=== PATIENT | male | born 2000 | race Caucasian/White ===

== ENCOUNTER 2021-11-30 18:16 | Emergency (ER) | payer OTHER, SELFPAY ==
--- NOTE | 2021-11-30 18:28 | ED.URI ---
HPI - URI/Sore Throat General Chief Complaint: Dizziness Stated Complaint: Dizziness/Vomiting/Headache Time Seen by Provider: 11/30/21 19:01 Source: patient and RN notes reviewed Mode of arrival: ambulatory Limitations: no limitations History of Present Illness HPI Narrative: 21-year-old male presents concern for dizziness, vomiting and occasional headache. He reports he felt a popping in his ear and then began having dizziness when he turns his head. He reports the room spinning type dizziness. Reports occasionally the dizziness makes him vomit. He denies decree strength, sensation in any extremity, thunderclap headache. Reports his symptoms been going on for about 2 weeks. MD elicited complaint: other (Dizziness) Related Data Allergies Allergy/AdvReac Type Severity Reaction Status Date / Time No Known Allergies Allergy Verified 11/30/21 18:43 Review of Systems Review of Systems: CONSTITUTIONAL: Denies malaise, chills, sweats, or fever. EYES: Denies visual changes, redness, or discharge. ENT: Denies rhinorrhea, congestion, sinus pain, otalgia and sore throat. CARDIOVASCULAR: Denies chest pain, palpitations, or edema. RESPIRATORY: Denies cough. Denies dyspnea. GASTROINTESTINAL: Denies abdominal pain, diarrhea. Reports nausea, vomiting SKIN: Denies rash or itching. MUSCULOSKELETAL: Denies myalgia. NEUROLOGIC: Reports headache. All systems reviewed & are unremarkable except as noted in HPI and below PMFSH Comments At time of signature, agree with nursing past medical, surgical, social and family history. There is no relevant family history pertinent to the presenting complaint Exam Narrative: GENERAL: Well-appearing, well-nourished, and in no acute distress. HEAD: Normocephalic EYES: PERRLA, conjunctivae clear ENT: Nares clear. Mucous membranes moist. TM pearly nj with dull light reflex bilaterally; no tragal tenderness. Oropharynx not erythematous without lesions. Tonsils not enlarged and without exudate, no drooling, no hoarseness, no trismus, uvula midline. NECK: Supple. No lymphadenopathy CHEST: No respiratory distress, speaks in full sentences. HEART: Regular rate and rhythm. No murmur heard. SKIN: Warm, dry, no rash. NEURO: Alert and oriented x3. No focal deficits, cranial nerves II through XII grossly intact PSYCH: Normal mood and affect Course Course Emergency Course: Patient is aware of diagnosis, understands and agrees to treatment plan. Anticipatory guidance given. Patient agrees to follow-up as directed and is aware of reasons to seek care at the emergency department. Portions of this record may have been created with voice recognition software Level of Care: Express Care Visit Vital Signs Vital signs: Vital Signs Temperature 99.5 F 11/30/21 18:32 Pulse Rate 64 11/30/21 18:32 Respiratory Rate 20 11/30/21 18:32 Blood Pressure 112/62 11/30/21 18:32 Pulse Oximetry 99 11/30/21 18:32 Temperature 99.5 F 11/30/21 18:32 Pulse Rate 64 11/30/21 18:32 Respiratory Rate 20 11/30/21 18:32 Blood Pressure 112/62 11/30/21 18:32 Pulse Oximetry 99 11/30/21 18:32 Reviewed. MDM - URI/Sore Throat MDM Narrative Medical decision making narrative: Patients vertigo is felt to be likely peripheral in origin. there is no diplopia, dysarthria, or dyshphagia. Patients gait is stable and there are no focal neurological deficits on exam. Risk for central causes has been reviewed. Patient felt likely reasonable for continued outpatient management and risks are felt to outweigh benefits for further imaging studies at this time Lab Data Attestation: I reviewed the patient's lab results. Critical Care Time Critical Care Time Critical Care Time: No Discharge Plan Discharge Clinical Impression: Benign paroxysmal positional vertigo Qualifiers: Laterality: unspecified laterality Qualified Code(s): H81.10 - Benign paroxysmal vertigo, unspecified ear Patient Disposition: Home, Self-Care C
[2021-11-30 18:32] VITALS: BP 112/62; PULSE 64; RESP 20; TEMP 37.5; O2SAT 99
== END 2021-11-30 19:26 | disposition home or self-care (01) ==
PROVIDERS: Emergency Provider Nurse Practitioner
DX: H81.10 Benign paroxysmal vertigo, unspecified ear (principal)
CPT/HCPCS: 99213; G0463

== ENCOUNTER 2022-10-08 13:18 | Emergency (ER) | payer OTHER, SELFPAY ==
[2022-10-08 13:25] VITALS: BP 135/80; PULSE 85; RESP 20; TEMP 36.6; O2SAT 99
--- NOTE | 2022-10-08 13:35 | ED.NECK ---
HPI - Neck Pain/Injury General Chief Complaint: Neck Pain/Injury Stated Complaint: sore throat Time Seen by Provider: 10/08/22 13:30 Source: patient Mode of arrival: ambulatory Limitations: no limitations History of Present Illness HPI Narrative: Boy is a 22-year-old male patient presenting to clinic today with complaints of possible throat swelling. He reports that he was in a wrestling match yesterday and he was kicked in the throat. States that he feels as though his throat is swollen today. He reports that he is having some pain with swallowing and feels as though it may be hard to breathe Related Data Allergies Allergy/AdvReac Type Severity Reaction Status Date / Time No Known Allergies Allergy Verified 10/08/22 13:31 Review of Systems Review of Systems: Pertinent positives per HPI. Patient denies any fever, chills, rash, headache, visual changes, dizziness, cough, shortness of breath, chest pain, palpitations, nausea, vomiting, diarrhea, constipation, abdominal pain, or any urinary issues. PMFSH Comments At the time of my signature, I reviewed and agree with the nursing past medical, surgical, social, and family history. There is no relevant family history pertinent to the patient complaint. Exam Narrative: General: Well-developed, well nourished, in no apparent distress Head: Normocephalic, atraumatic Eyes: Pupils equally round and reactive to light bilaterally, EOM intact, sclera and conjunctive clear, no discharge, lids normal Ears: TMs intact and clear, ear canals clear, no drainage, grossly hearing normal. Nose: Nares patent, no discharge, no inflammation, no sinus tenderness. Mouth: Oral pharynx without lesions or masses, good dentition, MMM. Neck: Supple, trachea midline, no enlargement of anterior or posterior cervical nodes, no thyroid masses or goiter palpable. Cardio: Regular rate and rhythm, s1 and s2 normal, no murmur appreciated. Resp: Clear to auscultation bilaterally, no rhonchi, rales, wheezing or rubs Course Course Emergency Course: Portions of this record may have been created with voice recognition software. Level of Care: Express Care Visit Vital Signs Vital signs: Vital Signs Temperature 36.6 C 10/08/22 13:25 Pulse Rate 85 10/08/22 13:25 Respiratory Rate 20 10/08/22 13:25 Blood Pressure 135/80 10/08/22 13:25 Pulse Oximetry 99 10/08/22 13:25 Oxygen Delivery Room Air 10/08/22 13:25 Temperature 36.6 C 10/08/22 13:25 Pulse Rate 85 10/08/22 13:25 Respiratory Rate 20 10/08/22 13:25 Blood Pressure 135/80 10/08/22 13:25 Pulse Oximetry 99 10/08/22 13:25 Oxygen Delivery Room Air 10/08/22 13:25 Vital signs reviewed MDM - Neck Pain/Injury MDM Narrative Medical decision making narrative: At the time of visit patient is resting comfortably on exam table. I do not see any swelling in the oropharynx however I cannot rule out swelling in the trachea. I will give a prescription for some prednisone to help with swelling and discuss other supportive measures and patient voiced understanding discharge instructions agrees to treatment plan. Differential Diagnosis Differential diagnosis: Likely strain of neck muscle and other (Soft tissue swelling) Discharge Plan Discharge Clinical Impression: Anterior neck pain Patient Disposition: Home, Self-Care Condition: Stable Instructions: Antibiotic Form, Acute Neck Pain (ED) Additional Instructions: Take prescription medications only as prescribed-prednisone Increase fluids and stay well hydrated Tylenol/motrin for pain/fever Cepacol spray, cough drops, throat lozenges, warm tea with honey/lemon, gargle salt water to soothe throat Clear liquids x 24 hours then advance as tolerated for nausea/vomiting Go to the ED if you develop a worsening in your condition- high fever not controlled by Tylenol or Motrin, dehydration, weakness, lethargy, shortness of breath, or chest pain. F
== END 2022-10-08 13:40 | disposition home or self-care (01) ==
PROVIDERS: Emergency Provider Nurse Practitioner Family; PCP Emergency Medicine
DX: M54.2 Cervicalgia (principal)
CPT/HCPCS: 99213; G0463

== ENCOUNTER 2025-08-25 16:57 | Emergency (ER) | payer OTHER, SELFPAY ==
--- OUTSIDE RECORDS SUMMARY | 2025-08-25 17:01 | XMS_ITS | Clinical Summary ---
Author Organization [facility] Address [address] [place] [address] Care Team Providers Care Forensic Engineer Name Role Phone Suzie Blankenship MD Primary Care Provider [phone] Source Comments [facility],non-owned Affiliates and Associated Physician Practices is amultiple site organization consisting of ambulatory clinics and hospital sitesin [place], [place], [place] and [place]. This disclosure is being madepursuant to the Care Everywhere program and may not contain all information available regarding this patient. Last updated 18.[facility] Social History Tobacco Use Types Packs/Day Years Used Date Smoking Tobacco: Never Assessed Sex and Gender Information Value Date Recorded Sex Assigned at Not on file Legal Sex Male 3:23 PM CDT Gender Identity Not on file Sexual Orientation Not on file Plan of Treatment Health Maintenance Due Date Last Done Comments HIV SCREENING 2013 HEPATITIS C SCREENING 05/02/2016 DTAP/TDAP/TD VACCINES (1 - Tdap) 2017 HEPATITIS B VACCINE (1 of 3 - 19+ 3-dose series) 2017 DEPRESSION SCREENING 08/29/2024 COVID-19 VACCINE (1 - 2024-2 6 season) 2025 INFLUENZA VACCINE (#1) 2025 HPV VACCINE (1 - 3-dose SCDM series) 2025 ZOSTER VACCINE (1 of 2) 2048 HIB VACCINE Aged Out No longer eligi ble based on patient's age to complete this topic MENINGOCOCCAL (Group B) VACC INE SHARED DECISION-MAKING Aged Out No longer eligibl e based on patient's age to complete this topic MENINGOCOCCAL GROUPS A/C/Y/W VACCINE Aged Out No longer eligible b ased on patient's age to complete this topic PNEUMOCOCCAL VACCINE Aged Out No long er eligible based on patient's age to complete this topic Insurance [facility] MEDICAID - OUT OF [facility] MEDICAID - [place] MEDICAID - [facility] Care Teams Forensic Engineer Relationship Specialty Start Date End Date Suzie Blankenship MD [address] [place] [phone] PCP - General 01/17/19
--- OUTSIDE RECORDS SUMMARY | 2025-08-25 17:01 | XMS_ITS | Clinical Summary ---
Author Organization [facility] Address [address] [place] [address] Phone Care Team Providers Care Marketing Development Representative Name Role Phone Provider, None Primary Care Provider Unavailabl e Allergies Active Allergy Reactions Criticality Noted Date Comments [place] Leaves Extract Hives 06/14/2017 Medications naproxen (NAPROSYN) 500 MG Tablet Take 1 Tablet by mouth 2 times daily as needed for Mild or more severe pain. 20 Tablet 03/21/2022 Active cyclobenzaprine (FLEXERIL) 10 MG Tablet Take 1 Tablet by mouth 3 times daily as needed for Muscle spasms. 30 Tablet 03/21/2022 Active ondansetron (ZOFRAN) 4 MG Tablet Take 1 Tablet by mouth every 8 hours as needed for Nausea - 1st line. 10 Tablet 08/09/2022 Active dicyclomine (BENTYL) 20 MG Tablet Take 1 Tablet by mouth every 6 hours. 30 Tablet 08/09/2022 Active Social History Tobacco Use Types Packs/Day Years Used Date Smoking Tobacco: Former Cigarettes Smokeless Tobacco: Never Alcohol Use Standard Drinks/Week Comments No 0 (1 standard drink = 0.6 oz pur e alcohol) socially Sex and Gender Information Value Date Recorded Sex Assigned at Not on file Legal Sex Male 10:31 PM CDT Gender Identity Not on file Sexual Orientation Not on file Last Filed Vital Signs Vital Sign Reading Time Taken Comments Blood Pressure 121/79 08/09/2022 11:32 AM MANAGER STORY Pulse 83 08/09/2022 11:30 AM MANAGER STORY Temperature 36.1 C (97 F) 08/09/2022 11:30 AM MANAGER STORY Respiratory Rate 18 08/09/2022 11:30 AM MANAGER STORY Oxygen Saturation 100% 08/09/2022 11:30 AM MANAGER STORY Inhaled Oxygen Concentration - - Weight 81.6 kg (180 lb) 08/09/2022 11:30 AM MANAGER STORY Height 175.3 cm (5' 9) 08/09/2022 11:30 AM MANAGER STORY Body Mass Index 26.58 08/09/2022 11:30 AM MANAGER STORY Plan of Treatment Health Maintenance Due Date Last Done Comments Hepatitis C Virus (HCV) Screening 1998 TdaP Immunization 1998 Varicella Immunization (1 of 2 - 13+ 2-dose series) 2011 Hepatitis B Immunization (1 of 3 - 19+ 3-dose series) 2017 Influenza Immunization (#1) 2025 SARS-COV-2 Immunization ( season) 2025 Respiratory Syncytial Virus (RSV) Immunization (Adult) (1 - 1-dose 75+ series) 2073 Human Papillomavirus (HPV) Immunization (No Doses Required) Completed Meningococcal Immunization (ACWY) Aged Out No longer eligible based on patient's age to complete this topic Pneumococcal Immunization Combined Aged Out No longer eligible based on patient's age to complete this topic Rotavirus Immunization Aged Out No lo nger eligible based on patient's age to complete this topic Insurance MEDICAID [employer] Care Teams Marketing Development Representative Relationship Specialty Start Date End Date Provider, None MIGUEL PCP - General 03/27/20
--- OUTSIDE RECORDS SUMMARY | 2025-08-25 17:01 | XMS_ITS | Clinical Summary ---
Author Organization [facility] Address [address] [place] [address] Care Team Providers Care Speed Reading Teacher Name Role Phone Theresa Dooley MD Primary Care Pro vider Allergies Active Allergy Reactions Criticality Noted Date Comments [place] Hives Medium 06/14/2017 Medications methylphenidate CD (METADATE CD) 40 mg CR capsule take 1 capsule by oral route every day before breakfast 0 0 6 Active Additional Information Patient not taking.Reported on 10/13/2017 Active Problems Problem Noted Date Diagnosed Date Pain in wrist 02/20/2016 Overview (12/01/2016): Wrist pain Pain of hand 02/20/2016 Overview (12/01/2016): Hand pain Asthma 02/20/2016 Overview (12/02/2016): Asthma Surgical History Surgery Date Site/Laterality Comments TONSILLECTOMY Medical History Medical History Date Comments Hx Other Medical Left wrist/hand fx. 6-14-16; Comments: JLIGIA 02/20/2016 - Family History Medical History Relation Name Comments Hypertension Father Relation Name Status Comments Father Social History Tobacco Use Types Packs/Day Years Used Date Smoking Tobacco: Every Day Smokeless Tobacco: Never Sex and Gender Information Value Date Recorded Sex Assigned at Not on file Legal Sex Male 4:08 AM SNIPPER Gender Identity Not on file Sexual Orientation Not on file Last Filed Vital Signs Vital Sign Reading Time Taken Comments Blood Pressure 136/76 10/13/2017 2:07 PM SNIPPER Pulse 96 10/13/2017 2:07 PM SNIPPER Temperature - - Respiratory Rate - - Oxygen Saturation - - Inhaled Oxygen Concentration - - Weight 91.2 kg (201 lb) 10/13/2017 2:07 PM SNIPPER Height 175.3 cm (5' 9) 10/13/2017 2:07 PM SNIPPER Body Mass Index 29.68 10/13/2017 2:07 PM SNIPPER Plan of Treatment Not on file Insurance [facility] Care Teams Speed Reading Teacher Relationship Specialty Start Date End Date Theresa Dooley MD PCP - General 04/09/16
[2025-08-25 17:02] VITALS: BP 118/76; PULSE 85; RESP 14; TEMP 36.3; O2SAT 100
--- NOTE | 2025-08-25 17:21 | ED_ITS ---
HPI - Nausea/Vomiting/Diarrhea General Chief complaint: Nausea/Vomiting/Diarrhea Stated complaint: nausea/stomach pain Time Seen by Provider: 08/25/25 17:10 Source: patient and RN notes reviewed Mode of arrival: ambulatory Limitations: no limitations History of Present Illness HPI Narrative: 25-year-old male patient Presents Express Care complaining of nausea, vomiting, diarrhea for 2-3 days. Patient reports having lower abdominal cramping. Patient denies any abdominal pain, fevers, body aches, chills. Patient last vomited approximately 2 and half hours ago. Patient has been able to keep fluids down since vomiting. Patient reports having loose stools. Patient denies any blood or mucus in stools. Patient tried some Pepto this morning without relief. Patient denies recent travel outside the country. Related Data Allergies Allergy/AdvReac Type Severity Reaction Status Date / Time strawberry Allergy Unknown Unknown Verified 08/25/25 17:06 Review of Systems Review of Systems: CONSTITUTIONAL: Denies fever, chills, body aches, or sweats. EYES: Denies visual changes, redness, or discharge. ENT: Denies rhinorrhea, congestion, sore throat, or otalgia. CARDIOVASCULAR: Denies chest pain, palpitations, or edema. RESPIRATORY: Denies cough or dyspnea. GASTROINTESTINAL: Denies abdominal pain, bloody stools, hematochezia. Positive for nausea, vomiting, or diarrhea. GENITOURINARY: Denies dysuria or hematuria. SKIN: Denies rash or itching. MUSCULOSKELETAL: Denies back pain, joint pain, or myalgia. NEUROLOGIC: Denies headache, numbness, or weakness. PSYCHIATRIC: Denies anxiety or depression. All other systems reviewed are negative, except as documented in HPI. Exam Narrative: GENERAL: This is a well-nourished, well-developed adult, in no apparent distress. They are non ill-appearing, nontoxic appearing. HEAD: normocephalic, atraumatic. EYES: Sclera clear/white. Vision is grossly intact. Conjunctiva normal bilaterally. Extraocular movements intact. EARS: External ears normal, Hearing grossly intact. NOSE: External nose normal THROAT: Mucous membranes moist NECK: Normal range of motion CARDIOVASCULAR: Regular rate and rhythm normal S1-S2. No clicks, gallops, rubs, or murmurs. RESPIRATORY: Respiratory rate normal, respiratory effort nonlabored, no respiratory distress. Lung sounds clear to auscultation. No adventitious lung sounds. Breath sounds equal bilaterally. GASTROINTESTINAL: Abdomen soft, flat, non-tender, nondistended. Bowel sounds are active. No hepato-splenomegaly, or palpable masses. No guarding or rigidity. No rebound tenderness. SKIN: warm, Dry, intact with no suspicious lesions or rash, good texture and turgor. NEURO: awake, alert, and oriented to person, place and time. There were no obvious focal neurologic abnormalities. EXTREMITIES: No joint tenderness, effusion, or edema noted. BACK: Nontender without deformity. Course Course Level of Care: Express Care Visit Vital Signs Vital signs: Vital Signs Temperature 97.4 F L 08/25/25 17:02 Pulse Rate 85 08/25/25 17:02 Respiratory Rate 14 08/25/25 17:02 Blood Pressure 118/76 08/25/25 17:02 Pulse Oximetry 100 08/25/25 17:02 Oxygen Delivery Room Air 08/25/25 17:02 Temperature 97.4 F L 08/25/25 17:02 Pulse Rate 85 08/25/25 17:02 Respiratory Rate 14 08/25/25 17:02 Blood Pressure 118/76 08/25/25 17:02 Pulse Oximetry 100 08/25/25 17:02 Oxygen Delivery Room Air 08/25/25 17:02 [facility] Narrative Medical decision making narrative: Patient likely has a gastroenteritis. Patient's vital signs hemodynamically stable, patient has moist mucous membranes, no peritoneal findings on exam. No abdominal tenderness. No tachycardia. Patient was found leaning over his head in the trash can upon entering the room due to severe nausea he states. Patient not vomited here at the clinic. Was given Zofran with improvement of symptoms. Will send him home with Zofran. Discussed supportive care. Discussed physical exam findings. Advised supportive measures and signs/symptoms to go to the ER. Pt is appropriate for outpt treatment and f/u. Differential Diagnosis Differential Diagnosis: Differential diagnostic considerations for nausea/vomiting/diarrhea include gastroenteritis, appendicitis, IBD, intestinal obstruction, clostridium difficile, food poisoning, peritonitis, IBS, dehydration, ischemic bowel, ACS, pancreatitis, drug induced nausea/vomiting. Discharge Plan Discharge Clinical Impression: Gastroenteritis Patient Disposition: Home Condition: Stable Instructions: Antibiotic Form, Gastroenteritis (ED) Additional Instructions: It is likely have a viral gastroenteritis. This is normally a self-limiting condition or resolve within 24-72 hours. However sometimes symptoms may linger on up to 7 days. It is recommended not to take anything for the diarrhea and allow the diarrhea to run its course. If the diarrhea persist and you feeling better, you may take Pepto-Bismol as needed to help control the diarrhea. Recommend hydration with plenty of fluids electrolyte supplementation such as Pedialyte. Follow-up PCP in 3-5 days. You may take Zofran as needed for nausea or vomiting. If Your unable to keep anything down, develop severe abdominal pain, fevers, uncontrollable diarrhea, concerns of dehydration, or any other concerns please go to the ER immediately. Patient Language: Irish Prescriptions: New ondansetron 4 mg tablet,disintegrating 4 mg PO Q8H PRN (Reason: nausea and vomiting) Qty: 12 0RF Follow-up/Referrals: PHYSICIAN,[employer] [Primary Care Provider, Internal Medicine] Stand Alone Forms: Work/School Release IP Time of Disposition: 17:20
[2025-08-25] MEDS: ONDANSETRON HCL ODT 4 MG TABLET PO (17:22)
== END 2025-08-25 17:36 | disposition home or self-care (01) ==
DX: K52.9 Noninfective gastroenteritis and colitis, unspecified (principal)
CPT/HCPCS: 99213; A9270; G0463